=== PATIENT | female | born 1975 | race Two or more races ===

== ENCOUNTER 2016-12-19 14:50 | Emergency (ER) | payer MEDICAID, OTHER ==
[~2016-12-19] VITALS: Ht 162.6 cm; Wt 56.7 kg
[2016-12-19 14:56] VITALS: BP 110/82
[2016-12-19] MEDS ORDERED: CLINDAMYCIN 900 MG/6 ML VIAL ONE (15:16)
[2016-12-19] MEDS ORDERED: ONDANSETRON 4 MG TAB.RAPDIS ONE (15:17)
[2016-12-19] MEDS ORDERED: HYDROCODONE/APAP 5/325MG 1 EACH TABLET ONE (15:18)
[2016-12-19] MEDS ORDERED: LIDOCAINE HCL/MPF 1% 30 ML VIAL IJ ONE (15:19)
[2016-12-19] MEDS ORDERED: LIDOCAINE 0.5% HCL 50 ML VIAL IJ ONE (15:30)
[2016-12-19] MEDS ORDERED: ONDANSETRON 4 MG TAB.RAPDIS PO ONE (15:30)
[2016-12-19] MEDS ORDERED: HYDROCODONE/APAP 5/325MG 1 EACH TABLET PO ONE (15:30)
[2016-12-19] MEDS ORDERED: POVIDONE-IODINE OINT 28.4 GM TUBE TP ONE (15:30)
[2016-12-19] MEDS ORDERED: CLINDAMYCIN 900 MG/6 ML VIAL IM ONE (15:30)
== END 2016-12-19 16:25 | disposition home or self-care (01) ==
LOC: ER 14:52
DX: L03.011 Cellulitis of right finger (principal); Z98.890 Other specified postprocedural states
CPT/HCPCS: 10060; 87070; 87077; 87186; 96372; 99283; A4606; J3490 ×2; Q0162; Z7610

== ENCOUNTER 2016-12-22 18:27 | Emergency (ER) | payer OTHER ==
[~2016-12-22] VITALS: Ht 165.1 cm; Wt 56.7 kg
[2016-12-22 18:27] VITALS: BP 120/77
== END 2016-12-22 19:22 | disposition home or self-care (01) ==
LOC: ER 18:30
DX: Z48.00 Encounter for change or removal of nonsurgical wound dressing (principal); L03.011 Cellulitis of right finger; F17.200 Nicotine dependence, unspecified, uncomplicated; Z98.890 Other specified postprocedural states
CPT/HCPCS: 99281; A4606; Z7610; Z7502

== ENCOUNTER 2017-02-06 13:06 | Emergency (ER) | payer OTHER ==
[~2017-02-06] VITALS: Ht 165.1 cm; Wt 56.7 kg
[2017-02-06 13:12] VITALS: BP 122/69
== END 2017-02-06 13:44 | disposition home or self-care (01) ==
LOC: ER 13:08
DX: L03.011 Cellulitis of right finger (principal); F17.200 Nicotine dependence, unspecified, uncomplicated
CPT/HCPCS: A4606; Z7610

== ENCOUNTER 2017-05-08 13:20 | Emergency (ER) | payer OTHER ==
[~2017-05-08] VITALS: Ht 162.6 cm; Wt 68.0 kg
[2017-05-08 14:45] VITALS: BP 115/67
--- NOTE | 2017-05-08 14:54 | NUR ---
CALLED [facility]
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
== END 2017-05-08 14:47 | disposition home or self-care (01) ==
LOC: ER 13:21
DX: T76.21XA Adult sexual abuse, suspected, initial encounter (principal); F10.10 Alcohol abuse, uncomplicated; F17.200 Nicotine dependence, unspecified, uncomplicated; Z98.890 Other specified postprocedural states
CPT/HCPCS: A4606; Z7502; Z7610

== ENCOUNTER 2017-06-19 10:14 | Emergency (ER) | payer OTHER ==
[~2017-06-19] VITALS: Ht 165.1 cm; Wt 54.4 kg
[2017-06-19 10:24] VITALS: BP 100/71
== END 2017-06-19 10:38 | disposition home or self-care (01) ==
LOC: ER 10:16
DX: L03.012 Cellulitis of left finger (principal); F17.200 Nicotine dependence, unspecified, uncomplicated; Z98.890 Other specified postprocedural states
CPT/HCPCS: A4606; Z7610

== ENCOUNTER 2017-06-27 17:27 | Emergency (ER) | payer OTHER ==
[~2017-06-27] VITALS: Ht 157.5 cm; Wt 54.4 kg
[2017-06-27 18:22] VITALS: BP 103/66
== END 2017-06-27 18:47 | disposition home or self-care (01) ==
LOC: ER 17:28
DX: Z48.00 Encounter for change or removal of nonsurgical wound dressing (principal); F10.10 Alcohol abuse, uncomplicated; F32.9 Major depressive disorder, single episode, unspecified; Z98.890 Other specified postprocedural states
CPT/HCPCS: A4606; Z7610

== ENCOUNTER 2017-11-30 16:32 | Emergency (ER) | payer OTHER ==
[~2017-11-30] VITALS: Ht 165.1 cm; Wt 56.7 kg
[2017-11-30 16:32] VITALS: BP 120/80
== END 2017-11-30 18:37 | disposition home or self-care (01) ==
LOC: ER 16:34
DX: L03.011 Cellulitis of right finger (principal); Z98.890 Other specified postprocedural states
CPT/HCPCS: A4606; Z7610